=== PATIENT | female | born 1985 | race Caucasian/White ===

== ENCOUNTER 2017-06-12 10:07 | Emergency (ER) | payer BC ==
[~2017-06-12] VITALS: Ht 157.5 cm; Wt 70.3 kg
[2017-06-12 10:34] LABS: URINE BLOOD TRACE (Negative); URINE COLOR YELLOW; URINE GLUCOSE-RANDOM* NEGATIVE (Negative); URINE KETONES NEGATIVE (Negative); URINE NITRITE NEGATIVE (Negative); URINE PROTEIN (DIPSTICK) TRACE (Negative); URINE SPECIFIC GRAVITY 1.015 (1.003-1.035)
[2017-06-12 10:36] LABS: ICTOTEST (BILI CONFIRMATORY) Negative (Negative); URINE BILIRUBIN NEGATIVE (Negative)
[2017-06-12 12:23] LABS: MCH 29.1 pg (26.0-34.0); MCHC 35.1 g/dL (28.0-37.0); MCV 82.9 fL (80.0-100.0); PLATELET COUNT 375 thou/uL (150-400); RBC 4.46 mil/uL (4.20-5.00); RDW 13.5 % (10.5-14.5)
[2017-06-12 12:32] LABS: CREATININE 0.7 mg/dL (0.6-1.0); POTASSIUM 3.8 mmol/L (3.5-5.1)
[2017-06-12 12:36] LABS: ALBUMIN 2.9 g/dL (3.4-5.0); TOTAL BILIRUBIN 0.5 mg/dL (<0.1-1.0); TOTAL PROTEIN 7.2 g/dL (6.4-8.2)
[2017-06-12 12:47] LABS: MANUAL DIFF YES
[2017-06-12 13:37] VITALS: BP 116/75
[2017-06-12 14:07] LABS: ABSOLUTE NEUTROPHILS 5.6 thou/uL (1.4-8.2); TOTAL CELL COUNT 100
[2017-06-12 14:19] LABS: ANISOCYTOSIS SLIGHT
== END 2017-06-12 13:38 | disposition home or self-care (01) ==
LOC: ER 10:07
PROVIDERS: Physician Assistant
DX: R94.5 Abnormal results of liver function studies (principal); R10.12 Left upper quadrant pain; R53.83 Other fatigue; M79.1 Myalgia; J45.909 Unspecified asthma, uncomplicated; Z88.0 Allergy status to penicillin